=== PATIENT | female | born 2000 | race Hispanic/Latino ===

== ENCOUNTER 2024-03-20 10:46 | Emergency (ER) | payer OTHER ==
[~2024-03-20] VITALS: Ht 157.5 cm; Wt 56.7 kg
[2024-03-20 11:08] VITALS: PULSE 83; RESP 16; TEMP 98.3; O2SAT 100
[2024-03-20] MEDS ORDERED: HYDROXYZINE HCL25 MG PO (11:26)
== END 2024-03-20 11:37 | disposition home or self-care (01) ==
LOC: ER 11:16
DX: R00.2 Palpitations (principal); F41.9 Anxiety disorder, unspecified
CPT/HCPCS: 99282